=== PATIENT | male | born 1985 | race Caucasian/White ===

== ENCOUNTER 2018-01-12 07:57 | Emergency (ER) | payer BC, OTHER ==
[~2018-01-12] VITALS: Ht 172.7 cm; Wt 107.5 kg
[~2018-01-12 07:57] MED LIST: ONDA8TAB12 PO; RANI150T6 PO
[2018-01-12] MEDS ORDERED: IV NORMAL SALINE 1,000ML 1,000 ML IV SCH (08:21)
[2018-01-12] MEDS ORDERED: IOHEXOL 240 MG/ML 50ML VIAL. ONE (08:32)
--- NOTE | 2018-01-12 08:43 | PHYS DOC ---
Past History Past Medical History: No Pertinent History Past Surgical History: Appendectomy Smoking: Cigarettes, Less than 1pk/day Alcohol Use: None Drug Use: None Adult General Chief Complaint Chief Complaint: ABDOMINAL PAIN [facility] 32-year-old male patient complaining of intermittent episodes of lower abdominal pain with radiation to his back for the last 6 months that usually happens once a month and last for 1 or 2 days. Patient said the pain is a sharp pain and rated his pain 7/10 and states he had pain since yesterday with nausea without vomiting. Patient states he usually has one or 2 episodes of bowel movement a day but during episodes of abdominal pain he feels that he needs to have more bowel movement. Patient denies fever, vomiting, losing or gaining weight, anorexia, seeking medical attention for this problem. Review of Systems Review of Systems Constitutional: Denies fever or chills [] Eyes: Denies change in visual acuity, redness, or eye pain [] HENT: Denies nasal congestion or sore throat [] Respiratory: Denies cough or shortness of breath [] Cardiovascular: No additional information not addressed in HPI [] GI: Reports abdominal pain, nausea, denies vomiting, bloody stools or diarrhea [ ] : Denies dysuria or hematuria [] Musculoskeletal: Denies back pain or joint pain [] Integument: Denies rash or skin lesions [] Neurologic: Denies headache, focal weakness or sensory changes [] Endocrine: Denies polyuria or polydipsia [] All other systems were reviewed and found to be within normal limits, except as documented in this note. Current Medications Current Medications Current Medications Medications (Trade) Dose Ordered Sig/Lesli Start Time Stop Time Status Last Admin Dose Admin Iohexol (Omnipaque 240 Mg/ml) 50 ml STK-MED ONCE 01/12/18 08:32 01/12/18 08:33 DC Ondansetron HCl (Zofran) 4 mg 1X ONCE 01/12/18 08:45 01/12/18 08:46 01/12/18 08:40 4 MG Sodium Chloride 1,000 ml @ 100 mls/hr Q10H 01/12/18 08:21 01/12/18 18:20 01/12/18 08:40 100 MLS/HR Allergies Allergies Allergies Coded Allergies Type Severity Reaction Last Updated Verified No Known Drug Allergies 11/17/14 No Physical Exam Physical Exam Constitutional: Well developed, well nourished, mild distress, non-toxic appearance. [] HENT: Normocephalic, atraumatic, bilateral external ears normal, oropharynx moist, no oral exudates, nose normal. [] Eyes: PERRLA, EOMI, conjunctiva normal, no discharge. [] Neck: Normal range of motion, no tenderness, supple, no stridor. [] Cardiovascular:Heart rate regular rhythm, no murmur [] Lungs & Thorax: Bilateral breath sounds clear to auscultation [] Abdomen: Bowel sounds normal, soft, no tenderness, no masses, no pulsatile masses. [] Skin: Warm, dry, no erythema, no rash. [] Back: No tenderness, no CVA tenderness. [] Extremities: No tenderness, no cyanosis, no clubbing, ROM intact, no edema. [] Neurologic: Alert and oriented X 3, normal motor function, normal sensory function, no focal deficits noted. [] Psychologic: Affect normal, judgement normal, mood normal. [] Current Patient Data Vital Signs Vital Signs Date Time Temp Pulse Resp B/P (MAP) Pulse Ox O2 Delivery O2 Flow Rate FiO2 01/12/18 07:57 98.2 66 18 96 Room Air EKG EKG [] Radiology/Procedures Radiology/Procedures [] [address] [address] IMAGING REPORT Signed PATIENT: THALIA LIU ACCOUNT: [id number] : 1985 LOCATION: ER AGE: 32 SEX: M EXAM STATUS: REG ER ORD. PHYSICIAN: NENO ESTES MD REASON: abdominal pain PROCEDURE: CT ABD PELV W/ORAL&IV CONTRAST CT of the abdomen and pelvis with contrast, 01/12/2018: History: Abdominal pain Multidetector CT imaging was performed following oral and IV administration of contrast. The liver is of lower than normal density in a diffuse pattern compatible with fatty change. No hepatic mass is seen. The gallbladder is unremarkable. No pancreatic abnormality is detected. The spleen is of normal size. No renal or adrenal abnormality is detected. The abdominal aorta is unremarkable. Small retroperitoneal and mesenteric lymph nodes are seen without evidence of pathologic enlargement. No iliac or inguinal adenopathy is evident. The urinary bladder is mildly distended. The appendix is surgically absent. The bowel loops are not dilated. No free air or significant free fluid is evident in the abdomen or pelvis. The left inguinal ring is dilated. It contains fat and spermatic cord structures without evidence of bowel herniation. IMPRESSION: 1. Hepatic steatosis. 2. Distended urinary bladder. 3. Dilatation of the left inguinal ring without evidence of bowel herniation. PQRS Compliance Statement: One or more of the following individualized dose reduction techniques were utilized for this examination: 1. Automated exposure control 2. Adjustment of the mA and/or kV according to patient size 3. Use of iterative reconstruction technique DICTATED AND SIGNED BY: SARINA SOTO MD DATE: 01/12/18 1013 CC: JEFF BUTLER MD; NENO ESTES MD ~ Course & Med Decision Making Course & Med Decision Making Pertinent Labs and Imaging studies reviewed. (See chart for details) []Evaluation of patient in ER showed 32-year-old female patient with complaining of chronic abdominal pain intermittently for 6 months with unremarkable physical exam and labs and CT abdomen and pelvis except for hepatic steatosis. The CT showed larger inguinal ring without sign of hernia patient denies any pain or bulging in left inguinal area. Patient instructed to follow with his primary care physician for referral to GI specialist regarding chronic abdominal pain. I've spoken with the patient and/or caregivers. I've explained the patient's condition, diagnosis and treatment plan based on information available to me at this time. I've answered the patient's and/or caregivers questions and addressed any concerns. The patient and/or caregivers have a good understanding the patient's diagnosis, condition and treatment plan as can be expected at this point. Vital signs have been stabilized. The patient's condition is stable for discharge from the emergency department. The patient will pursue further outpatient evaluation with her primary care provider or other designated consulting physician as outlined in the discharge instructions. Patient and/or caregivers are agreeable to this plan of care and follow-up instructions have been explained in detail. The patient and/or caregivers have received these instructions in written format and expressed understanding of these discharge instructions. The patient and her caregivers are aware that if any significant change in condition or worsening of symptoms should prompt him to immediately return to this of the closest emergency department. If an emergent department is not readily available I would encourage him to call 911. Elda Disclaimer Elda Disclaimer This electronic medical record was generated, in whole or in part, using a voice recognition dictation system. Departure Departure: Impression: Primary Impression: Chronic abdominal pain Additional Impressions: Hepatic steatosis Cannabis abuse Disposition: HOME, SELF-CARE (At 1050) Condition: IMPROVED Referrals: JEFF BUTLER MD (PCP) Patient Instructions: Abdominal Pain Additional Instructions: Drink plenty of liquids Follow-up with your primary care physician in 3-5 days Return to ER if not getting better Scripts Ondansetron (ZOFRAN ODT) 4 Mg Tab.rapdis 1 TAB SL Q8HRS, #15 TAB Prov: NENO ESTES MD 01/12/18 Naproxen (NAPROSYN) 500 Mg Tablet 1 TAB PO BID, #20 TAB 2 Refills Prov: NENO ESTES MD 01/12/18 Problem Qualifiers NENO ESTES MD Jan 12, 2018 08:43
[2018-01-12] MEDS ORDERED: ONDANSETRON PF 4 MG/2 ML VIAL. IV ONE (08:45)
[2018-01-12 08:46] LABS: BASO % 1 % (0-3); EOS # 0.1 x10^3/uL (0.0-0.7); EOS % 1 % (0-3); HEMOGLOBIN 16.1 g/dL (13.0-17.5); LYMPH # 2.5 x10^3/uL (1.0-4.8); LYMPH % 29 % (24-48); MEAN CORPUSCULAR HEMOGLOBIN 32 pg (25-35); MEAN CORPUSCULAR HGB CONC 35 g/dL (31-37); MEAN CORPUSCULAR VOLUME 91 fL (79-100); MONO % 11 % (0-9); NEUT # 5.1 x10^3uL (1.8-7.7); NEUT % 59 % (31-73); PLATELET COUNT 167 x10^3/uL (140-400); RED BLOOD COUNT 5.04 x10^6/uL (4.30-5.70); RED CELL DISTRIBUTION WIDTH 12.8 % (11.5-14.5); WHITE BLOOD COUNT 8.8 x10^3/uL (4.0-11.0)
[2018-01-12] MEDS ORDERED: CONTRAST GIVEN MC PRN (09:00)
[2018-01-12 09:09] LABS: ALBUMIN 3.9 g/dL (3.4-5.0); CALCIUM 8.4 mg/dL (8.5-10.1); CREATININE 1.2 mg/dL (0.7-1.3); GFR 69.7; POTASSIUM 3.7 mmol/L (3.5-5.1); TOTAL BILIRUBIN 1.1 mg/dL (0.2-1.0); TOTAL PROTEIN 7.9 g/dL (6.4-8.2)
[2018-01-12] MEDS ORDERED: IOHEXOL 240 MG/ML 50ML VIAL. PO ONE (09:15)
[2018-01-12] MEDS ORDERED: IOHEXOL 300 MG/ML 75 ML VIAL. IV ONE (09:15)
[2018-01-12 09:21] VITALS: BP 145/107
--- NOTE | 2018-01-12 10:21 | RAD ---
CT of the abdomen and pelvis with contrast, 01/12/2018: History: Abdominal pain Multidetector CT imaging was performed following oral and IV administration of contrast. The liver is of lower than normal density in a diffuse pattern compatible with fatty change. No hepatic mass is seen. The gallbladder is unremarkable. No pancreatic abnormality is detected. The spleen is of normal size. No renal or adrenal abnormality is detected. The abdominal aorta is unremarkable. Small retroperitoneal and mesenteric lymph nodes are seen without evidence of pathologic enlargement. No iliac or inguinal adenopathy is evident. The urinary bladder is mildly distended. The appendix is surgically absent. The bowel loops are not dilated. No free air or significant free fluid is evident in the abdomen or pelvis. The left inguinal ring is dilated. It contains fat and spermatic cord structures without evidence of bowel herniation. IMPRESSION: 1. Hepatic steatosis. 2. Distended urinary bladder. 3. Dilatation of the left inguinal ring without evidence of bowel herniation. PQRS Compliance Statement: One or more of the following individualized dose reduction techniques were utilized for this examination: 1. Automated exposure control 2. Adjustment of the mA and/or kV according to patient size 3. Use of iterative reconstruction technique
[2018-01-12 10:32] LABS: BARBITURATES NEG (NEG); BENZODIAZEPINES NEG (NEG); CANNABINOIDS POS (NEG); COCAINE NEG (NEG); METHADONE NEG (NEG); OPIATES NEG (NEG); PHENCYCLIDINE NEG (NEG)
[2018-01-12 10:33] LABS: AMPHETAMINE/METHAMPHETAMINE NEG (NEG)
[2018-01-12] MEDS ORDERED: NAPR-683 PO (10:33)
[2018-01-12] MEDS ORDERED: ONDA4TAB10 SL (10:33)
[2018-01-12 10:42] LABS: BACTERIA,URINE 0 /HPF (0-FEW); BILIRUBIN,URINE NEG (NEG); CLARITY,URINE CLEAR; COLOR,URINE YELLOW; GLUCOSE,URINE NEG (NEG); NITRITE,URINE NEG (NEG); RBC,URINE 0 /HPF (0-2); SQUAMOUS EPITHELIAL CELL,UR OCC /LPF; UROBILINOGEN,URINE 0.2 mg/dL (0.2 mg/dL); WBC,URINE 0 /HPF (0-4)
[2018-01-12] MEDS ORDERED: KETOROLAC 30 MG/ML VIAL. IV ONE (11:00)
[2018-01-12] MEDS ORDERED: MORPHINE SULFATE 4 MG/ML DISP.SYRIN. IV ONE (12:00)
== END 2018-01-12 11:20 | disposition home or self-care (01) ==
LOC: ER 07:57
DX: G89.29 Other chronic pain (principal); R10.30 Lower abdominal pain, unspecified; K76.0 Fatty (change of) liver, not elsewhere classified; F12.10 Cannabis abuse, uncomplicated; F17.210 Nicotine dependence, cigarettes, uncomplicated; Z90.49 Acquired absence of other specified parts of digestive tract
CPT/HCPCS: 36415; 74177; 80053; 80307; 81001; 83690; 85025; 96361; 96374; 96375; 99285; J1885; J2405; Q9967; G0479; J7030

== ENCOUNTER 2021-11-27 12:06 | Emergency (ER) | payer BC, OTHER ==
[~2021-11-27] VITALS: Ht 172.7 cm; Wt 120.0 kg
[~2021-11-27 12:06] MED LIST changes: +NAPR-683 PO; +ONDA4TAB10 SL; +RANI-376 PO; -RANI150T6 PO
[2021-11-27 12:11] VITALS: BP 143/92
--- NOTE | 2021-11-27 12:33 | PHYS DOC ---
Past History Past Medical History: No Pertinent History Past Surgical History: Appendectomy Smoking: Cigarettes, Less than 1pk/day Alcohol Use: None Drug Use: None Adult General HPI HPI Patient is a 36-year-old male presenting for URI symptoms. Onset was 5 days ago. States he is healthy otherwise with no medical issues, has known positive COVID exposure, his mother first got it as she works in healthcare and her son developed symptoms and tested positive shortly afterwards. Patient reports he had Phill symptoms and was tested when his son was 9 days ago but reports 5 days ago he starting to develop upper respiratory symptoms. Admits he has had several isolated episodes of fever greater than 100.4 that have resolved with Tylenol use. He reports ongoing nasal drainage and dry nonproductive cough prompting him to come in for evaluation. He does disclose he is not vaccinated against COVID-19 Review of Systems Review of Systems Fourteen body systems of review of systems have been reviewed. See HPI for pertinent positives and negative responses, other talbot all other systems are negative, non-pertinent or non-contributory Allergies Allergies Allergies Coded Allergies Type Severity Reaction Last Updated Verified No Known Drug Allergies 11/17/14 No Physical Exam Physical Exam General: Appears well, non toxic, and comfortable Skin: Warm, dry. Normal for ethnicity. HEENT: Atraumatic. PERRLA. Rhinorrhea and congestion. Nasal turbinates boggy b/l. Moist mucous membranes. Uvula midline. Maintaining secretions. No phonation changes. Neck: Trachea midline. Normal ROM. No stridor. No meningeal signs or nuchal rigidity Respiratory: Normal WOB. CTAB w/o w/r/r. No tachypnea. Cardiovascular: Regular rate and rhythm. Normal peripheral perfusion. Abdomen: Soft. Non tender. No distension. Back: Normal ROM. Musculoskeletal: No swelling or deformity. Neuro: Alert and oriented x 4. MAEE. Lymph: No cervical LAD. Psych: Normal affect and mood. EKG EKG [] Radiology/Procedures Radiology/Procedures [] Heart Score C/O Chest Pain: No Risk Factors: Risk Factors: DM, Current or recent (<one month) smoker, HTN, HLP, family history of CAD, obesity. Risk Scores: Risk Factors: DM, Current or recent (<one month) smoker, HTN, HLP, family history of CAD, obesity. Course & Med Decision Making Course & Med Decision Making ABCs unremarkable HPI and physical exam consistent with likely self-limiting/viral syndrome. Cannot exclude COVID-19 in an unvaccinated individual with positive contact, PCR swab obtained with results pending Appropriate self quarantine and supportive care practices advised with understanding verbalized by patient prior to your departure Elda Disclaimer Chiquitaon Disclaimer This electronic medical record was generated, in whole or in part, using a voice recognition dictation system. Departure Departure: Impression: Primary Impression: Viral syndrome Additional Impression: Person under investigation for COVID-19 Disposition: HOME / SELF CARE / HOMELESS Condition: STABLE Referrals: CHERYLE GUILLEN MD (PCP) Additional Instructions: You were seen for upper respiratory symptoms, fever, body aches, and possible infection with COVID-19. Your physical exam was reassuring. We tested you for COVID-19 but this test does not come back for 1 to 2 days. In the meantime you need to quarantine yourself at home away from all other individuals, especially those who are elderly or have any other chronic health issues or an immunocompromised status. You should return to the ED if you develop worsening cough, shortness of breath, chest pain, or any other new or concerning symptoms. Alternate Tylenol and ibuprofen as needed for body aches and pain. If your test does come back positive you need to quarantine yourself for 10 days until symptom-free. You should make sure to drink plenty of fluids and get plenty of rest. Problem Qualifiers RINKU DAO DO Nov 27, 2021 12:33
== END 2021-11-27 12:52 | disposition home or self-care (01) ==
LOC: ER 12:06
DX: U07.1 COVID-19 (principal); B34.9 Viral infection, unspecified; F17.210 Nicotine dependence, cigarettes, uncomplicated
CPT/HCPCS: 99283; C9803; U0003